=== PATIENT | male | born 1980 | race Caucasian/White ===

== ENCOUNTER 2016-11-20 18:48 | Emergency (ER) | payer OTHER ==
[2016-11-20] MEDS: DIPH,PERTUSS(ACELL),TET VAC/PF 0.5 ML DISP.SYRIN IM ONE (19:34)
[2016-11-20] MEDS: DOXYCYCLINE MONOHYDRATE 100 MG CAPSULE PO ONE (19:35)
[2016-11-20 20:05] VITALS: BP 149/86
--- NOTE | 2016-11-20 20:53 | ED Physician Documentation ---
General Adult - HISTORIAN Historian: patient - HPI Stated Complaint: spider bite Chief Complaint: General Adult Onset: days ago (1) Timing: still present Severity: moderate Further Comments: yes (Pt is a 36 yo male with abscess, redness in R axilla. Pt states that this is from a spider bite that occurred when he was cleaning a barn,) - ROS CONST: no problems EYES/ENT: none CVS/RESP: none GI/: none MS/SKIN/LYMPH: other (tenderness, redness, R axilla) - PAST HX Past History: none (ortho surgery) Allergies/Adverse Reactions: Allergies Allergy/AdvReac Type Severity Reaction Status Date / Time No Known Allergies Allergy Verified 11/20/16 18:57 Home Medications: Ambulatory Orders Medication Instructions Recorded Doxycycline Monohydrate 100 mg PO Q12H #20 tablet 11/20/16 - SOCIAL HX Smoking History: cigarettes - FAMILY HX Family History: No - VITAL SIGNS Vital Signs: Vital Signs Temp Pulse Resp BP Pulse Ox 100.8 F H 79 16 149/94 98 11/20/16 18:50 11/20/16 18:50 11/20/16 18:50 11/20/16 18:50 11/20/16 18:50 - REVIEWED ASSESSMENTS Nursing Assessment Reviewed: Yes Vitals Reviewed: Yes Progress - Progress Progress: Rx Doxycycline 100 mg. Take one by mouth every 12 hours for 10 days. 1st dose in ER. ED Results Lab/Radiology - Orders Orders: ED Orders Category Date Time Status Diph,Pertuss(Acell),Tet Vac/Pf [Adacel] Med 11/20/16 19:21 Once 0.5 ml IM .ONCE ONE Doxycycline Monohydrate [Vibramycin] Med 11/20/16 19:22 Once 100 mg PO NOW ONE General Adult Physical Exam - PHYSICAL EXAM GENERAL APPEARANCE: mild distress EENT: pharynx normal NECK: normal inspection, supple RESPIRATORY: no resp distress, chest non-tender, breath sounds normal CVS: reg rate & rhythm, heart sounds normal ABDOMEN: soft, no organomegaly, normal bowel sounds BACK: normal inspection SKIN: other (2 cm abscess R axilla with surrounding erythema, tender) EXTREMITIES: normal range of motion NEURO: oriented X3, motor nml, sensation nml Discharge Clincal Impression: Abscess Insect bite Qualifiers: Encounter type: initial encounter Qualified Code(s): W57.XXXA - Bitten or stung by nonvenomous insect and other nonvenomous arthropods, initial encounter Prescriptions: Doxycycline Monohydrate 100 mg PO Q12H #20 tablet Referrals: Primary Doctor,No [Primary Care Provider] - 2 Days Home Medications: Ambulatory Orders Doxycycline Monohydrate 100 mg PO Q12H #20 tablet 11/20/16 Condition: Good Disposition: 01 HOME, SELF-CARE Decision to Admit: NO Decision Time: 19:29
== END 2016-11-20 19:40 | disposition home or self-care (01) ==
LOC: ED 18:48
DX: T63.301A Toxic effect of unspecified spider venom, accidental (unintentional), initial encounter (principal); W57.XXXA Bitten or stung by nonvenomous insect and other nonvenomous arthropods, initial encounter; Y93.9 Activity, unspecified; Y99.9 Unspecified external cause status; L02.91 Cutaneous abscess, unspecified
CPT/HCPCS: 90471; 90715; 99283

== ENCOUNTER 2017-02-10 18:11 | Emergency (ER) | payer OTHER ==
--- NOTE | 2017-02-10 18:24 | ED Physician Documentation ---
Lower Extremity Injury - HISTORIAN Historian: patient - HPI Chief Complaint: Lower Extremity Injury Onset: hours Where: work Severity: mild Context: twist Associated Symptoms:: snapping sensation, popping sensation. denies: tingling, numbness distally, swelling Modifying Factors:: pain on movement - ROS CONST: no problems CVS/RESP: none GI/: denies: problems urinating MS/SKIN/LYMPH: none NEURO: denies: headache - PAST HX Past History: none Allergies/Adverse Reactions: Allergies Allergy/AdvReac Type Severity Reaction Status Date / Time No Known Allergies Allergy Verified 02/10/17 18:40 Home Medications: Ambulatory Orders Medication Instructions Recorded NK [NK] 02/10/17 - SOCIAL HX Smoking History: cigarettes, greater than 1 pack/day Alcohol Use: none Drug Use: none - FAMILY HX Family History: none - VITAL SIGNS Vital Signs: Vital Signs Temp Pulse Resp BP Pulse Ox 99.1 F 79 20 135/88 95 02/10/17 18:11 02/10/17 18:11 02/10/17 18:11 02/10/17 18:11 02/10/17 18:11 - REVIEWED ASSESSMENTS Nursing Assessment Reviewed: Yes Vitals Reviewed: Yes ED Results Lab/Radiology - Radiology Radiology Impressions: no acute - Orders Orders: ED Orders Category Date Time Status KNEE 3 VIEWS [RAD] Stat Exams 02/10/17 Completed Lower Extremities Injury Phy - Physical Exam General Appearance: no acute distress, alert Hips: bilateral hip: non-tender, normal inspection Legs: bilateral: non-tender, normal inspection Knees: left: pain, soft tissue tenderness, bilateral: no evidence of injury Ankle: bilateral: normal inspection Foot: bilateral foot: normal inspection Ligaments: No: laxity on anterior drawer Gait: limited by pain Neuro/Vascular/Tendon: no vascular compromise Head/ENT: nml inspection Neck/Back: nml inspection Resp/CVS: No: chest non-tender Abdomen: non-tender Discharge Clincal Impression: Strain of knee and leg, left Qualifiers: Encounter type: initial encounter Qualified Code(s): S86.912A - Strain of unspecified muscle(s) and tendon(s) at lower leg level, left leg, initial encounter Left knee sprain Qualifiers: Encounter type: initial encounter Involved ligament of knee: unspecified ligament Qualified Code(s): S83.92XA - Sprain of unspecified site of left knee, initial encounter Left knee injury Qualifiers: Encounter type: initial encounter Qualified Code(s): S89.92XA - Unspecified injury of left lower leg, initial encounter Referrals: Primary Doctor,No [Primary Care Provider] - 2 Days Condition: Stable Disposition: 01 HOME, SELF-CARE Decision to Admit: NO Date of Decison to Admit: 02/10/17 Decision Time: 19:31
--- NOTE | 2017-02-10 19:03 | Diagnostic Imaging Report ---
JANEY LIND [facility] [id number] [facility]ly [facility] [address] [address] Report Submission Date: Feb 10, 2017 7:00:49 PM CDT Patient Study Name: SAMIR LOPEZ Date: Feb 10, 2017 6:36:54 PM CDT Modality Type: CR Gender: M Description: LOWER EXTREMITY : 76 Institution: [facility] Physician: JANEY LIND Examination: Plain film knee History: Knee discomfort Findings: 3 views of the knee demonstrates normal cortical margins. No fracture. No dislocation. No joint effusion. Femoral fixation deven. No soft tissue irregularity. Impression: No acute osseous abnormality Electronically signed on Feb 10, 2017 7:00:49 PM CDT by: Saul CAMERON
[2017-02-10 20:28] VITALS: BP 138/72
== END 2017-02-10 19:50 | disposition home or self-care (01) ==
LOC: ED 18:11
DX: S86.912A Strain of unspecified muscle(s) and tendon(s) at lower leg level, left leg, initial encounter (principal); S83.92XA Sprain of unspecified site of left knee, initial encounter; S89.92XA Unspecified injury of left lower leg, initial encounter; X58.XXXA Exposure to other specified factors, initial encounter; Y93.9 Activity, unspecified; Y99.9 Unspecified external cause status
CPT/HCPCS: 73562; 99283